=== PATIENT | male | born 1955 | race Caucasian/White ===

== ENCOUNTER 2018-12-08 20:34 | Emergency (ER) | payer SELFPAY ==
[~2018-12-08] VITALS: Ht 177.8 cm; Wt 77.0 kg
[2018-12-08] MEDS ORDERED: SODIUM CHLORIDE 0.9% 1,000 ML IV ONE (21:26)
[2018-12-08] MEDS ORDERED: ONDANSETRON HCL 4MG/2ML INJ IV STA (21:26)
[2018-12-08 22:09] LABS: BASOPHILS % 0.7 % (0.0-2.0); EOSINOPHILS % 0.5 % (0.0-5.0); HEMATOCRIT. 46.7 % (42.0-52.0); LYMPHOCYTES % 48.1 % (20.0-50.0); MEAN CORPUSCULAR HEMOGLOBIN 30.8 pg (28.0-32.0); MONOCYTES % 8.5 % (2.0-8.0); NEUTROPHILS % 42.2 % (40.0-76.0); PLATELET 234 x1000/uL (130-400); RED BLOOD CELL COUNT 5.19 mill/uL (4.7-6.1); RED CELL DISTRIBUTION WIDTH 13.8 % (11.6-14.6)
[2018-12-08 22:11] LABS: CHLORIDE 104 mEq/L (98-107)
[2018-12-08] MEDS ORDERED: INSULIN LISPRO 100 UNITS/ML SUBCUT SCH (23:15)
[2018-12-08] MEDS ORDERED: INSULIN LISPRO 100 UNITS/ML SUBCUT NR (23:18)
[2018-12-09 03:47] VITALS: BP 145/80
== END 2018-12-09 03:49 | disposition home or self-care (01) ==
LOC: ER 21:02
DX: F10.129 Alcohol abuse with intoxication, unspecified (principal); E11.9 Type 2 diabetes mellitus without complications; I10 Essential (primary) hypertension; Y90.9 Presence of alcohol in blood, level not specified
CPT/HCPCS: 36415; 80053; 82962; 83880; 84484; 85025; 93005; 96372; 96374; 99284; J1815; J2405; J7030; 99283

== ENCOUNTER 2018-12-13 15:52 | Emergency (ER) | payer SELFPAY ==
[~2018-12-13] VITALS: Ht 170.2 cm; Wt 75.0 kg
[2018-12-13] MEDS ORDERED: SODIUM CHLORIDE 0.9% 1,000 ML IV ONE (17:54)
[2018-12-13 18:37] LABS: BASOPHILS % 0.8 % (0.0-2.0); EOSINOPHILS % 0.5 % (0.0-5.0); HEMATOCRIT. 43.3 % (42.0-52.0); HEMOGLOBIN. 15.1 g/dL (14.0-18.0); LYMPHOCYTES % 36.5 % (20.0-50.0); MEAN CORPUSCULAR HEMOGLOBIN 30.8 pg (28.0-32.0); MEAN CORPUSCULAR VOLUME 88.4 fL (80.0-94.0); MEAN PLATELET VOLUME 7.7 fl (7.4-10.4); MONOCYTES % 8.8 % (2.0-8.0); NEUTROPHILS % 53.4 % (40.0-76.0); PLATELET 149 x1000/uL (130-400); RED BLOOD CELL COUNT 4.89 mill/uL (4.7-6.1); RED CELL DISTRIBUTION WIDTH 13.7 % (11.6-14.6)
[2018-12-13 18:41] LABS: CHLORIDE 101 mEq/L (98-107)
[2018-12-13 18:56] LABS: ETHANOL BLOOD 370 mg/dL
[2018-12-13 21:45] VITALS: BP 125/69
== END 2018-12-13 21:45 | disposition home or self-care (01) ==
LOC: ER 15:59
DX: F10.229 Alcohol dependence with intoxication, unspecified (principal); I10 Essential (primary) hypertension; E11.9 Type 2 diabetes mellitus without complications; G31.2 Degeneration of nervous system due to alcohol; R74.0 Nonspecific elevation of levels of transaminase and lactic acid dehydrogenase [LDH]; D72.819 Decreased white blood cell count, unspecified; Y90.8 Blood alcohol level of 240 mg/100 ml or more
CPT/HCPCS: 36415; 80053; 80320; 85025; 99283; J7030; G0480